=== PATIENT | female | born 1985 | race African-American/Black ===

== ENCOUNTER 2024-09-05 13:53 | Emergency (ER) | payer BC ==
[2024-09-05] MEDS ORDERED: KETOROLAC 30 MG/ML INJ ONE (14:42)
[2024-09-05] MEDS ORDERED: ACETAMINOPHEN 500 MG TAB ONE (14:42)
[2024-09-05 14:49] LABS: Absolute Lymphocytes (CBC) 0.9 K/uL (0.7-4.9); Absolute Monocytes 0.8 K/uL (0.1-1.3); Absolute Neutrophil 1.2 K/uL (1.8-8.0); Eosinophils % 0.4 % (0-4.4); Hematocrit 44.6 % (36.0-45.0); Hemoglobin 15.4 g/dL (12.0-15.0); Lymphocytes % 31.4 % (15.3-44.8); MCH 32.4 pg (27.0-35.0); MCHC 34.5 g/dL (32.0-36.0); MCV 93.9 fL (80-100); MPV 8.5 fL (7.6-11.3); Monocytes % 27.7 % (3.3-12.3); Neutrophils % 39.5 % (41.7-73.7); Nucleated Red Blood Cells % 0.1 % (0-0); Platelets 258 thou/uL (152-406); RBC Red Blood Cell Count 4.75 M/uL (3.86-4.86); Red Cell Distribution Width 14.3 % (12.1-15.2)
[2024-09-05 15:02] LABS: Albumin 3.6 g/dL (3.4-5.0); Albumin/Globulin Ratio 0.9 (1.1-1.8); Anion Gap 8.3 mEq/L (5.0-15.0); Bilirubin Total 0.3 mg/dL (0.2-1.0); Potassium 3.3 mEq/L (3.5-5.1); Protein, Total 7.6 g/dL (6.4-8.2)
[2024-09-05 15:11] LABS: Specific Gravity > 1.030 (1.005-1.030); Sqamous Epithelial <5 /HPF (None Seen); Urine Bacteria <20 /HPF (<20); Urine Bilirubin NEGATIVE (Negative); Urine Blood 1+ (Negative); Urine Clarity Extremely Turbid (Clear); Urine Color Yellow (Yellow); Urine Crystals Unidentified Few /HPF (None Seen); Urine Culture Reflex Order NOT NEEDED; Urine Glucose NEGATIVE (Negative); Urine Ketones 1+ (Negative); Urine Micro Reflex YN NO BILL MICROSCOPIC; Urine Mucus 4+ /HPF (None Seen); Urine Nitrite NEGATIVE (Negative); Urine Protein 2+ (Negative); Urine Urobilinogen 1+ (Normal); Urine Yeast (Budding) Trace /HPF (None Seen)
[2024-09-05 15:20] LABS: SARS-CoV-2 Antigen CONTROL BLUE LINE VIS/BG OK; SARS-CoV-2 Antigen Rapid Res Negative (Negative)
--- NOTE | 2024-09-05 15:35 | RAD REPORT ---
EXAMINATION: CT ABDOMEN AND PELVIS WITH CONTRAST CLINICAL INDICATION: Female, 39 years old.low back/abd pain TECHNIQUE: CT abdomen and pelvis was performed, after the administration of IV contrast, as per [facility] protocol. Axial, sagittal and coronal reconstructions were obtained. One or more of the following dose reduction techniques were used: Automated exposure control, adjustment of the mA and/o r kV according to patient size, and/or iterative reconstruction. Unless otherwise specified, incidental findings do not require dedicated imaging follow-up. [id number]. COMPARISON: No prior exam. FINDINGS: LOWER CHEST: No acute process identified.No significant pericardial effusion. Mild circumferential th ickening of the distal esophagus which could reflect esophagitis. UPPER GI: No significant abnormality. LIVER: Hepatic steatosis, but otherwise unremarkable. GALLBLADDER/BILE DUCTS: No biliary ductal dilatation.? PANCREAS: No mass, ductal dilation, or kyle-pancreatic fluid. SPLEEN: Unremarkable. ADRENALS: No adrenal masses. KIDNEYS AND URETERS: No hydronephrosis.No suspicious renal mass. ABDOMINAL AORTA AND OTHER VESSELS: Normal caliber aorta and IVC. PERITONEUM: No abnormal free fluid. No free air. LYMPH NODES: No pathologic lymphadenopathy. ABDOMINAL WALL: Unremarkable SMALL BOWEL/COLON: Small bowel has normal course and caliber. No colonic wall thickening or pericolon ic inflammatory changes.Normal appendix. URINARY BLADDER: Decompressed, not well assessed. REPRODUCTIVE ORGANS: No pathologic process. MUSCULOSKELETAL: No acute or suspicious osseous abnormality. 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 ADDITIONAL FINDINGS: None. IMPRESSION: No acute or significant abnormalities seen in the abdomen or pelvis. Normal appendix.
--- NOTE | 2024-09-05 15:39 | EDPHYS ---
Physician Documentation [facility] Name: Toya Burciaga Age: 39 yrs Sex: Female : 1985 Arrival Date: 09/05/2024 Time: 13:53 Bed 5 Private MD: ED Physician Ivan Contreras HPI: 09/05 14:33 This 39 yrs old Black Female presents to ER via Ambulatory with complaints of Back Pain.ec2 14:33 Patient arrives today for evaluation of bilateral low back pain rating to the abdomen. ec2 Patient reports that she experienced fevers 3 days ago, subsequently start developing the symptoms. Reports no nausea or vomiting, denies any urinary complaints. Reports no previous abdominal surgeries. Patient otherwise reports no cough or cold symptoms. Reports no issues with p.o. intake. Denies any significant medical problems, no daily medications or allergies.. 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 - Infectious Disease History:: Denies. - Social history:: Smoking status: Patient reports the use of cigarette tobacco products, smokes one-half pack cigarettes per day. ROS: 14:33 Constitutional: as per hpi ec2 Exam: 14:33 Constitutional: GEN: NAD Head: atraumatic Eyes: EOMI Ears: External ears are ec2 normal. CV: regular rate LUNGS: no respiratory distress ABD: non-distended, soft, nontender, guarding, not rigid SKIN: no evidence of rashes MSK: no evidence of trauma, reproducible bilateral flank TTP without deformities or crepitus, no overlying skin changes appreciated. Vital Signs: 14:13 BP 130 / 102; Pulse 96; Resp 15; Temp 99.2(O); Pulse Ox 100% on R/A; Weight 58.97 kg; cm10 Height 5 ft. 2 in. ; Pain 8/10; 16:00 BP 123 / 98; Pulse 88; Resp 18 S; Temp 98.1(T); Pulse Ox 100% ; ha1 14:13 Body Mass Index 23.78 (58.97 kg, 157.48 cm) cm10 14:13 Pain Scale: Adult cm10 MDM: 14:24 Medical Screening Exam initiated ec2 14:33 Data reviewed: vital signs, nurses notes. ED course: Patient arrives today for ec2 bilateral back pain. Examination yields abdominal and MSK findings as above. Will obtain lab work, CT imaging. Differential include processes such as diverticulitis, pyelonephritis, MSK pain, viral infection.. 15:37 ED course: CT abdomen pelvis shows no acute intra-abdominal process. On reassessment ec2 patient is well-appearing no acute distress, suspect MSK pain. Will discharge home. Return precautions given. Urine is noninfectious appearing. Lab work is nonactionable.. 09/05 14:31 Order name: Influenza Screen (a \T\ B); Complete Time: 15:22 ec2 09/05 14:31 Order name: SARS RAPID; Complete Time: 15:22 ec2 09/05 14:31 Order name: CBC with Diff; Complete Time: 15:50 ec2 09/05 14:31 Order name: CMP; Complete Time: 15:09 ec2 09/05 14:31 Order name: UAM; Complete Time: 15:22 ec2 09/05 14:31 Order name: Test, Serum; Complete Time: 15:09 ec2 09/05 15:44 Order name: CBC Smear Scan; Complete Time: 15:50 EDMS 09/05 14:31 Order name: CT Abd/Pelvis - IV Contrast Only; Complete Time: 15:37 ec2 09/05 14:31 Order name: IV Start; Complete Time: 14:42 ec2 Administered Medications: 14:42 Drug: Ketorolac IVP 15 mg IVP once Route: IVP; Site: right antecubital; ha1 15:00 Follow up: Response: No adverse reaction; Marked relief of symptoms; Pain is decreased ha1 14:42 Drug: Acetaminophen PO 1000 mg PO once Route: PO; ha1 15:00 Follow up: Response: No adverse reaction; Marked relief of symptoms; Pain is decreased ha1 Disposition Summary: 09/05/24 15:38 Discharge Ordered Notes: Location: Home ec2 Condition: Stable ec2 Diagnosis - Low back pain ec2 - Hypokalemia ec2 - Leukopenia ec2 Followup: ec2 - With: Private Physician - When: - Reason: Re-evaluation by your physician Discharge Instructions: - Discharge Summary Sheet ec2 - Acute Back Pain, Adult ec2 Forms: - Medication Reconciliation Form ec2 - Antibiotic Education ec2 - Prescription Opioid Use ec2 - Patient Portal Instructions ec2 - Leadership Thank You Letter ec2 Prescriptions: - methocarbamol 500 mg Oral tablet - take 1 tablet ORAL route 4 times per day; 30 tablet; Refills: 0, Product ec2 Selection Permitted Signatures: Dispatcher [employer] Amber Barrientos RN RN ha1 Treva Jacobs RN RN cm10 Ivan Contreras MD MD ec2
--- NOTE | 2024-09-05 15:39 | ER ---
Nurse's Notes [facility] Name: Toya Burciaga Age: 39 yrs Sex: Female : 1985 Arrival Date: 09/05/2024 Time: 13:53 Bed 5 Private MD: Diagnosis: Low back pain;Hypokalemia;Leukopenia Presentation: 09/05 14:13 Chief complaint: Patient states: Low back pain that radiates to her abdomen onset cm10 Wednesday. Pt reports subjective fevers and decreased appetite. No Nausea or vomiting, no urinary symptoms. Pt reports 1 episode of diarrhea. Coronavirus screen: Client denies travel out of the [place] in the last 14 days. Ebola Screen: Patient denies travel to an Ebola-affected area in the 21 days before illness onset. Initial Sepsis Screen: Does the patient meet any 2 criteria? HR > 90 bpm. Does the patient have a suspected source of infection? No. Patient's initial sepsis screen is negative. Risk Assessment: Do you want to hurt yourself or someone else? Patient reports no desire to harm self or others. Onset of symptoms was September 02, 2024. 14:13 Method Of Arrival: Ambulatory cm10 14:13 Acuity: GABINO 3 cm10 Triage Assessment: 14:15 General: Appears in no apparent distress. uncomfortable, Behavior is calm, cooperative. cm10 Pain: Complains of pain in back Pain does not radiate. Pain currently is 8 out of 10 on a pain scale. Quality of pain is described as aching. Neuro: No deficits noted. Level of Consciousness is awake, alert, obeys commands, Oriented to person, place, time, situation, Appropriate for age. Respiratory: No deficits noted. Airway is patent Respiratory effort is even, unlabored, Respiratory pattern is regular, symmetrical. Musculoskeletal: Range of motion: intact in all extremities, Denies pain in, back. 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 - Infectious Disease History:: Denies. - Social history:: Smoking status: Patient reports the use of cigarette tobacco products, smokes one-half pack cigarettes per day. Screenin:43 [facility] ED Fall Risk Assessment (Adult) History of falling in the last 3 months, kc6 including since admission No falls in past 3 months (0 pts) Confusion or Disorientation No (0 pts) Intoxicated or Sedated No (0 pts) Impaired Gait No (0 pts) Mobility Assist Device Used No (0 pt) Altered Elimination No (0 pt) Score/Fall Risk Level 0 - 2 = Low Risk Oriented to surroundings, Maintained a safe environment, Educated pt \T\ family on fall prevention, incl call for assistance when getting out of bed. Abuse screen: Denies threats or abuse. Denies injuries from another. Nutritional screening: No deficits noted. Tuberculosis screening: No symptoms or risk factors identified. Assessment: 14:43 General: Appears in no apparent distress. comfortable, well groomed, well developed, kc6 Behavior is calm, cooperative, appropriate for age, Reports fever for 2-3 days, feeling ill for 2-3 days. Pain: Complains of pain in left lower back and right lower back Pain radiates to right lower quadrant and left lower quadrant. Neuro: Level of Consciousness is awake, alert, obeys commands, Oriented to person, place, time, situation, Appropriate for age. Cardiovascular: Capillary refill < 3 seconds. Respiratory: Airway is patent Trachea midline Respiratory effort is even, unlabored, Respiratory pattern is regular, symmetrical. GI: Abdomen is flat, non-distended, Bowel sounds present X 4 quads. Abd is soft X 4 quads Reports lower abdominal pain, anorexia, diarrhea, Patient currently denies nausea, vomiting. : No signs and/or symptoms were reported regarding the genitourinary system. EENT: No signs and/or symptoms were reported regarding the EENT system. Derm: No signs and/or symptoms reported regarding the dermatologic system. Skin is intact, is healthy with good turgor, Skin is pink, warm \T\ dry. Musculoskeletal: No signs and/or symptoms reported regarding the musculoskeletal system. Circulation, motion, and sensation intact. Range of motion: intact in all extremities. 15:00 Reassessment: Patient and/or family updated on plan of care and expected duration. Pain ha1 level reassessed. Patient is alert, oriented x 3, equal unlabored respirations, skin warm/dry/pink. Patient states feeling better. Patient states symptoms have improved. 16:00 Reassessment: Patient and/or family updated on plan of care and expected duration. Pain ha1 level reassessed. Patient is alert, oriented x 3, equal unlabored respirations, skin warm/dry/pink. pain 3/10 Patient states feeling better. Patient states symptoms have improved. Vital Signs: 14:13 BP 130 / 102; Pulse 96; Resp 15; Temp 99.2(O); Pulse Ox 100% on R/A; Weight 58.97 kg; cm10 Height 5 ft. 2 in. ; Pain 8/10; 16:00 BP 123 / 98; Pulse 88; Resp 18 S; Temp 98.1(T); Pulse Ox 100% ; ha1 14:13 Body Mass Index 23.78 (58.97 kg, 157.48 cm) cm10 14:13 Pain Scale: Adult cm10 ED Course: 13:57 Patient arrived in ED. ra3 14:00 Ivan Contreras MD is Attending Physician. ec2 14:14 Triage completed. cm10 14:16 Arm band placed on right wrist. Patient placed in an exam room, on a stretcher. cm10 14:32 Ping Richard, RN is Primary Nurse. kc6 14:38 Radiology exam delayed due to lab results not completed at this time. (BUN/Creatinine) nj IV insertion attempt and/or patient not having appropriate IV at this time. 14:43 Patient has correct armband on for positive identification. Bed in low position. Call kc6 light in reach. Side rails up X 1. Adult w/ patient. Pulse ox on. NIBP on. Door closed. Noise minimized. Lights dimmed. Pillow given. 14:43 Initial lab(s) drawn, by me, sent to lab. Inserted saline lock: 20 gauge in left kc6 antecubital area, using aseptic technique. Blood collected. Flushed with 10 mL NS. Patient maintains SpO2 saturation greater than 95% on room air. 14:57 SARS RAPID Sent. ha1 14:57 Influenza Screen (a \T\ B) Sent. ha1 15:25 CT Abd/Pelvis - IV Contrast Only In Process Unspecified. EDMS 16:00 Provided Education on: medication administration . ha1 16:00 No provider procedures requiring assistance completed. ha1 16:00 IV discontinued, intact, bleeding controlled, No redness/swelling at site. Pressure ha1 dressing applied. Administered Medications: 14:42 Drug: Ketorolac IVP 15 mg IVP once Route: IVP; Site: right antecubital; ha1 15:00 Follow up: Response: No adverse reaction; Marked relief of symptoms; Pain is decreased ha1 14:42 Drug: Acetaminophen PO 1000 mg PO once Route: PO; ha1 15:00 Follow up: Response: No adverse reaction; Marked relief of symptoms; Pain is decreased ha1 Medication: 16:00 VIS not applicable for this client. ha1 Outcome: 15:38 Discharge ordered by . ec2 16:00 Discharged to home ambulatory, with family, ha1 16:00 Condition: stable 16:00 Discharge instructions given to patient, family, Instructed on discharge instructions, follow up and referral plans. medication usage, Demonstrated understanding of instructions, follow-up care, medications, Prescriptions given X 1, 16:00 Patient left the ED. ha1 Signatures: Dispatcher [employer] EDMS Ricky Art Heidy RN RN ha1 Ping Richard RN RN kc6 Treva Jacobs RN RN cm10 Ivan Contreras MD MD ec2 Amaya Morales ra3 Corrections: (The following items were deleted from the chart) 16:44 16:43 Patient left the ED. ha1 ha1
[2024-09-05 15:44] LABS: Blood Morphology Comment NOT SEEN (NOT SEEN); Platelet Estimate ADEQ; White Blood Cell Scan OK (OK)
[2024-09-05 17:13] VITALS: O2SAT 100
[2024-09-05 17:15] VITALS: BP 123/98; TEMP 98.1
== END 2024-09-05 16:43 | disposition home or self-care (01) ==
LOC: ER 13:53
DX: M54.50 Low back pain, unspecified (principal); E87.6 Hypokalemia; D72.819 Decreased white blood cell count, unspecified; Z11.52 Encounter for screening for COVID-19; F17.210 Nicotine dependence, cigarettes, uncomplicated
CPT/HCPCS: 85025; 81001; 36415; 84703; 80053; 87804 ×2; 74177; 96374; 99284; 87811; Q9967